=== PATIENT | male | born 1970 | race Caucasian/White ===

== ENCOUNTER 2023-08-31 17:16 | Emergency (ER) | payer OTHER, SELFPAY ==
[2023-08-31] VITALS (7 sets, daily range): BP systolic 105–145; BP diastolic 76–94
--- NOTE | 2023-08-31 17:50 | ED.GENMED ---
History of Present Illness
General
Chief Complaint: Chest Pain
Time Seen by Provider: 08/31/23 17:31
Travel History
Have you had any contact with someone who has COVID-19?: No
Do you have any symptoms of coronavirus? Fever > 100 degrees, chills, cough, shortness of breath, sore throat, loss of taste or smell, muscle aches, or headache?: No
History of Present Illness
History of Present Illness:
52-year-old male presents to the emergency department for acute onset of chest pain and diaphoresis developing earlier today at approximately 2 PM. Patient has had multiple similar episodes ongoing for several months that have not led to a
underlying diagnosis. He did have an echocardiogram in early June that was unremarkable and is scheduled for a exercise stress test at the end of this month. Pain that he describes today feels quite similar to the episodes he has had in the
past. Denies associated fever, chills. Does report sweating and shortness of breath associated with this. No back pain or leg swelling. Denies any illicit substance use
Past History
Past History
ED Past Medical History: Other (Back issues)
ED Past Surgical History: Orthopedic
Social History
Tobacco: Non-smoker
Alcohol: None
Drug: Marijuana
Personal:
Living: with family
Employment: Employed
Review of Systems
Review of Systems
Allergies reviewed?: Yes
All Other Systems: ROS reviewed and negative except as documented in HPI and ROS
Phy Exam
Physical Exam
Physical Exam:
GEN: Anxious appearing, nontoxic
Eyes: PERRLA, EOMs intact, no scleral icterus
HENT: NCAT, oral mucosa moist
Lungs: CTAB, no wheezes, rales, rhonchi, normal chest wall excursion
Cardiac: Tachycardic and irregular, no M/R/G, no peripheral edema. Radial pulses 2+ bilat
Abdomen: S, NT, ND, NABS, no masses or hepatosplenomegaly
Neuro: AO x 3
MSK: No gross deformity or ecchymosis. No edema. No digital clubbing
Skin: No rashes, petechiae. Normal color, no pallor or jaundice.
Psych: Calm, cooperative, proper hygiene
Scores
Heart Score for Chest Pain Patients
STEMI patient?: No
History: Slightly or Non-Suspicious
ECG: Normal
Age: </= 45 years
Risk Factors: No Risk Factors
Troponin: </= Normal Limit
Heart Score for Chest Pain Patients: 0
Heart Score Risk: 2.5% MACE over next 6 weeks
Course
Orders/Labs/Results
Orders:
Orders
08/31/23 17:17
EKG [Electrocardiogram (*1)] Stat
Reason for Study: Chest Pain
EKG- Treatment ONCE
08/31/23 17:49
Diltiazem HCl [Cardizem] 15 mg IV NOW STA
08/31/23 18:00
Diltiazem 125 mg/125 ml Nss [Cardizem] 125 mg in 125 ml IV PER PROTOCOL
Initial dose in mg/hr, then titrate:: 5
Titrate to keep:: Heart rate 80-100 bpm
Titrate by mg/hr:: 5 mg/hr
Frequency of titrations (minutes):: 15
Maximum dose in mg/hr:: 15
08/31/23 18:07
Complete Blood Count/With Diff Urgent
Comprehensive Metabolic Panel Urgent
Magnesium Urgent
08/31/23 18:58
Diltiazem [Cardizem] 60 mg PO NOW STA
08/31/23 20:31
Apixaban [Eliquis] 5 mg PO NOW STA
Abnormal Lab Results
08/31/23
18:07
MCH 31.5 H pg
(27.0-31.0)
MPV 11.1 H fL
(7.4-10.4)
Absolute Lymphs (auto) 3.9 H 10^3/uL
(1.2-3.4)
Glucose 130 H mg/dl
(70-99)
08/31/23 18:07
08/31/23 18:07
Vital Signs
Initial and Last Documented VS:
Initial Vital Signs
Temp Pulse Resp Pulse Ox
97.6 F 91 26 100
08/31/23 17:22 08/31/23 17:22 08/31/23 17:22 08/31/23 17:22
Last Documented Vital Signs
Temp Pulse Resp BP Pulse Ox
97.6 F 76 16 116/85 99
08/31/23 17:22 08/31/23 20:45 08/31/23 20:45 08/31/23 20:00 08/31/23 20:45
MDM/Problems Addressed
MDM/Problems Addressed:
Patient did convert to normal sinus rhythm transiently without medications but rapidly restarted and atrial fibs shortly thereafter. He was initially given IV diltiazem and started on diltiazem drip, had good rate control throughout this process.
He was given oral diltiazem and shortly thereafter the infusion was discontinued and the patient remained asymptomatic with controlled rates. He is not a cardioversion candidate due to the paroxysmal nature of his symptoms. We will start him on
anticoagulants and long-acting Cardizem, outpatient cardiology follow-up advised
Comment
Comment:
EKG independently interpreted by me shows a rapid atrial fibrillation with a rate of 151, no ST changes concerning for ischemia
*Critical Care Note
Total Time (30-74mins, 75-104mins- exclusive of procedures): Not Applicable
ED Attending Note
-
Portions of this chart may have been created with voice recognition software.� Occasional wrong word or��sound alike� substitutions may have occurred due to the inherent limitations of voice recognition software.
Discharge Plan
Departure
Patient Disposition: Home (Routine Discharge)
Date of Disposition: 08/31/23
Time of Disposition: 20:31
Patient with high blood pressure during this ER visit?: No
Discharge Problem:
Atrial fibrillation, new onset
Instructions: Atrial Fibrillation (DC), Going Home on Blood Thinners
Prescriptions:
New
diltiazem HCl 180 mg capsule,extended release 24hr
180 mg PO DAILY Qty: 30 0RF
Eliquis 5 mg tablet
5 mg PO BID Qty: 60 0RF
No Action
gabapentin 600 mg tablet
1,800 mg PO HS
ibuprofen 200 mg Capsule
400 mg PO Q6H PRN (Reason: mild pain)
Referrals:
Jenny Alvarez, [Family Provider] -
Activity Restrictions/Additional Instructions:
Follow up with your catering service manager
Interventions
Interventions:
*Risk Screen - Suicide Last Done: 08/31/23 17:20
*General Assessment Last Done: 08/31/23 17:20
*Neglect/Abuse Screening Last Done: 08/31/23 17:20
ED- Fall Risk Assessment Last Done: 08/31/23 21:08
*ED COVID-19 Vaccine History Last Done: 08/31/23 17:20
*Nursing Disposition Last Done: 08/31/23 21:08
ED- Cardiac Assessment Last Done: 08/31/23 19:00
Discharge Date and Time
Discharge Date/Time: 08/31/23 21:09
Print Language: CHINESE
[2023-08-31] MEDS: CARDIZEM 125 IV (17:59)
[2023-08-31] MEDS: CARDIZEM 15 MG IV (18:00)
[2023-08-31 18:15] LABS: % Basophils 0.6 % (0-2); % Immature Granulocytes 0.2 % (0-0.5); % Lymphocytes 42.6 % (20.5-51.1); % Monocytes 6.5 % (1.7-9.3); % Neutrophils 49.1 % (42.2-75.2); Absolute Basophils 0.1 10^3/uL (0-0.2); Absolute Eosinophils 0.1 10^3/uL (0-0.7); Absolute Lymphocytes 3.9 10^3/uL (1.2-3.4); Absolute Monocytes 0.6 10^3/uL (0.1-0.6); Absolute Neutrophils 4.5 10^3/uL (1.4-6.5); Hematocrit 43.2 % (39.0-52.0); Hemoglobin 15.9 g/dL (13.0-18.0); Mean Corp Hgb Conc. 36.8 g/dL (33.0-37.0); Mean Corpuscular Hgb 31.5 pg (27.0-31.0); Mean Corpuscular Volume 85.7 fL (80.0-94.0); Mean Platelet Volume 11.1 fL (7.4-10.4); Nucleated Red Blood Cells % 0 % (-); Platelet Count 246 10^3/uL (130-400); Red Blood Cell Count 5.04 10^6/uL (4.70-6.10); Red Cell Dist. Width 12.1 % (11.5-14.5); White Blood Cell Count 9.1 10^3/uL (4.8-10.8)
[2023-08-31 18:28] LABS: ALT (SGPT) 27 U/L (0-50); AST (SGOT) 28 U/L (17-59); Albumin 4.7 g/dl (3.5-5.0); Alkaline Phosphatase 58 U/L (38-126); Blood Urea Nitrogen 19 mg/dl (9-20); Carbon Dioxide 25 mmol/L (22-30); Chloride 106 mmol/L (98-107); Glucose 130 mg/dl (70-99); Sodium 137 mmol/L (135-145); Total Bilirubin 0.9 mg/dl (0.2-1.3); Total Protein 7.2 g/dl (6.3-8.2); eGFR > 60.00
[2023-08-31] MEDS: CARDIZEM 60 MG PO (19:16)
[2023-08-31] MEDS: ELIQUIS 5 MG PO (20:39)
== END 2023-08-31 21:09 | disposition home or self-care (01) ==
LOC: EMR 17:16
PROVIDERS: Physician Assistant; EMERGENCY PHYSICIAN Emergency Medicine; FAMILY PHYSICIAN Family Medicine
DX: I48.91 Unspecified atrial fibrillation (principal)
CPT/HCPCS: 99283; 80053; 83735; 85025; 93005

== ENCOUNTER → 2023-09-20 09:43 | Outpatient (REF) | payer OTHER, SELFPAY | LOC: RCS 09:43 | PROVIDERS: ATTENDING PHYSICIAN Internal Medicine Cardiovascular Disease; FAMILY PHYSICIAN Family Medicine | DX: R07.9 Chest pain, unspecified (principal) | CPT/HCPCS: 93017 ==

== ENCOUNTER → 2023-09-25 08:46 | Outpatient (REF) | payer OTHER, SELFPAY | LOC: RCS 08:46 | PROVIDERS: ATTENDING PHYSICIAN Nurse Practitioner; FAMILY PHYSICIAN Family Medicine | DX: I48.0 Paroxysmal atrial fibrillation (principal) | CPT/HCPCS: 93306 ==

== ENCOUNTER 2023-11-04 05:49 | Day surgery (SDC) | payer OTHER, SELFPAY ==
[2023-10-15 08:59] VITALS: BMI 24.4
[2023-10-15 09:33] LABS: % Basophils 0.5 % (0-2); % Eosinophils 1.5 % (0-6); % Immature Granulocytes 0.2 % (0-0.5); % Lymphocytes 41.4 % (20.5-51.1); % Monocytes 5.8 % (1.7-9.3); % Neutrophils 50.6 % (42.2-75.2); Absolute Eosinophils 0.1 10^3/uL (0-0.7); Absolute Lymphocytes 2.3 10^3/uL (1.2-3.4); Absolute Monocytes 0.3 10^3/uL (0.1-0.6); Absolute Neutrophils 2.8 10^3/uL (1.4-6.5); Hematocrit 46.3 % (39.0-52.0); Mean Corp Hgb Conc. 34.6 g/dL (33.0-37.0); Mean Corpuscular Hgb 31.3 pg (27.0-31.0); Mean Corpuscular Volume 90.4 fL (80.0-94.0); Mean Platelet Volume 11.4 fL (7.4-10.4); Nucleated Red Blood Cells % 0 % (-); Platelet Count 209 10^3/uL (130-400); Red Blood Cell Count 5.12 10^6/uL (4.70-6.10); White Blood Cell Count 5.5 10^3/uL (4.8-10.8)
[2023-10-15 09:40] LABS: ALT (SGPT) 18 U/L (0-50); AST (SGOT) 20 U/L (17-59); Albumin 4.3 g/dl (3.5-5.0); Alkaline Phosphatase 46 U/L (38-126); Blood Urea Nitrogen 18 mg/dl (9-20); Calcium 9.7 mg/dl (8.4-10.2); Carbon Dioxide 26 mmol/L (22-30); Chloride 105 mmol/L (98-107); Estimated Creatinine Clearance > 125 ml/min; Glucose 131 mg/dl (70-99); Potassium 4.6 mmol/L (3.5-5.1); Sodium 139 mmol/L (135-145); Total Bilirubin 0.7 mg/dl (0.2-1.3); Total Protein 6.7 g/dl (6.3-8.2); eGFR > 60.00
[2023-11-04] VITALS (20 sets, daily range): BP systolic 105–117; BP diastolic 68–80; BMI 24.2
[2023-11-04 08:41] LABS: ACT-LR - POC 353 Seconds (116-155)
[2023-11-04 08:56] LABS: ACT-LR - POC 321 Seconds (116-155)
[2023-11-04 09:16] LABS: ACT-LR - POC 300 Seconds (116-155)
--- NOTE | 2023-11-04 09:54 | ITS.CL.ABL ---
Air Pollution Control Engineer - Ablation
Ablation
Procedure Report:
AFIB ablation:
Mr. Anaya is a very pleasant 52 yr old gentleman with medical history significant for symptomatic paroxysmal atrial fibrillation who is here in the EP lab for atrial fibrillation ablation
Date of Procedure:
11/04/2023
Indications:
Symptomatic atrial fibrillation
Pre-Operative Diagnosis:
Paroxysmal Atrial fibrillation
Post-Operative Diagnosis:
Paroxysmal Atrial fibrillation
Procedure Performed:
Atrial fibrillation ablation with wide area circumferential ablation (WACA) approach for pulmonary vein isolation
Performing Physician:
Duncan Galicia MD
Assistants:
EP staff
Anesthesia:
See anesthesia records
Detailed Description of the Procedure:
Written informed consent was obtained from the patient after a full explanation of the risks and benefits of the procedure including the risks of sedation and anesthesia.
The patient was brought to the electrophysiology laboratory in stable condition in fasting state. Continuous electrocardiographic and hemodynamic monitoring was initiated.
The initial rhythm was normal sinus rhythm.
The procedure site was meticulously prepared with surgical scrub and allowed to dry with no pooling. Sterile draping was applied to cover the procedure site. The image intensifier was draped with sterile bag and positioned over the patient. After
infusion of local anesthetic, vascular access was obtained under ultrasound guidance and sheaths were placed over guide wire as detailed below.
Sheath and Catheter Placement:
In the right femoral vein, an 8-Macanese sheath was placed for use during the ablation procedure. A second 9-Fr sheath was placed for use during intracardiac echo procedure.
The sheaths were upgraded as needed during the case. Intracardiac catheters were positioned using direct fluoroscopic guidance.� ICE catheter was placed in RA. The following catheters / sheaths were placed
Sheaths:
��������������� Agilis sheath in right femoral vein upgraded from 8Fr in right femoral vein
��������������� 9Fr in right femoral vein
Catheters:
������������� [employer] Thermacool STSF bidirectional (D/F) - at locations of HRA, RV, LA and LV.
������������� Pentaray catheter � at locations of RA and LA
������������� ICE catheter - at locations of RA, SVC, and RV.
Intracardiac ECHO:
An 8-Macanese AcuNav intracardiac ECHO (ICE) probe was advanced through the 9-Macanese sheath in the femoral vein into the right atrium under fluoroscopic and ICE ultrasound image guidance and a baseline ECHO study was performed. The left atrial size
was normal. There was trace tricuspid regurgitation. The aortic valve was grossly normal. There was normal left ventricular size and function. There was a trace pericardial effusion. The KELSEY has normal velocities noted on Doppler. All the four veins
were identified and good flow noted.
During the procedure, ICE was used for monitoring of complications, guidance of trans-septal puncture, monitor the catheter position and tracking ablation lesions. No change in the pericardial space noted throughout the procedure.
Trans-septal Puncture:
Heparin was initiated and infused to maintain appropriate ACT.
A J-tipped guidewire was advanced through the 8-Macanese sheath in the right femoral vein into the superior vena cava under fluoroscopic and ICE guidance. The 8-Macanese sheath was exchanged for an Agilis sheath which was advanced into the superior vena
cava. A BRK needle was advanced until the tip was slightly behind the tip of the dilator inside the Agilis. The apparatus was withdrawn until it was in contact with the fossa ovalis. The position was adjusted based on fluoroscopy and ultrasound
images from ICE. Under fluoroscopic, hemodynamic and ICE ultrasound guidance, left atrium was cannulated by advancing the needle. Once atrial septum was cannulated, the needle was pulled back and a BMW guide wire was advanced through the needle into
the left atrium. The guide wire was advanced into the left superior pulmonary vein. Both the sheath and the dilator was advanced into the left atrium. The dilator with the needle was withdrawn. Blood was aspirated from the Agilis sheath and arterial
blood confirmed. The sheath was flushed. Saline injection noted into the left atrium on ICE. The pressure waveform was checked ad LA pressure measured. The penta-ray catheter was advanced in the Agilis sheath into the left pulmonary vein.
The 3-D mapping was done and then the penta-ray was switched to ablation catheter and back to penta-ray as needed.
3D Electroanatomic Mapping:
Using the Pentaray catheter advanced through Agilis sheath into the left atrium, an electroanatomic map (EAM) of the left atrium was created using [employer] Carto mapping system. The map was used for localization of catheter position and
tacking of ablation lesions. The EAM of the left atrium showed 4 pulmonary veins with a left common segment with all four electrically connected to the body the LA. It showed no significant scar on the posterior wall of the LA. The LA was normal in
size.
Following the EAM, preparations were made for ablation.
Phrenic nerve stimulation attempt:
The right sided pulmonary veins were identified and the anterior antrum and the deep anterior locations of the PVs were check with high output stimulation that showed no phrenic nerve capture in any of the potential ablation areas. The whole of the
anterior wall was mapped and the deep veins were also tested and once no sign of phrenic capture noted, a design line was created through the areas of tested antral myocardium for ablation lesions.
Ablation:
Pulmonary vein Isolation:
Radiofrequency ablation was performed using an open irrigation, force-sensing 3.5mm radiofrequency ablation catheter ([email or web address] [email or web address]) by completing the circumferential lesions around the left and right pulmonary veins achieving pulmonary vein
isolation.
All the ablation lesions were guided by the LeBU[employer] SURPOINT module with the posterior lesions were limited to 45 bowles for SURPOINT lesion index goal of 400 and anterior wall lesions were limited to SURPOINT index goal of 450.
The esophagus was noted to be on the right side of the LA near the PV antra based on the locations of the esophageal temperature probe. Ablation was stopped for any temperature increase of 0.1 degree C. Max esophageal temperature was 37.5C�
(baseline 37)
EP study / Confirmation of the PVI and bidirectional block:
Following achievement of entrance block at the pulmonary veins, pacing from the pentaray catheter in each of the four veins at 10 milliamps for 2 milliseconds showed entrance and exit block. All PVI were rechecked at the end of the case and remained
isolated with dissociated and local capture with pacing. Entrance and exit block were demonstrated in all veins.
The LA was mapped with Carto EAM in sinus rhythm confirming the line of block at the ablation lesions lines.
Sinus Node Function: The sinus node functions are within acceptable normal range.
The AV rehan functions are deemed within normal range.
The mitral annulus was mapped and no sign of accessory pathway was noted.
Arrhythmia Induction:
No sustained arrhythmia was induced at the end of the study.�
Procedure End
ICE study was done again that showed no epicardial accumulation. No complications noted.
Following the completion of the EP study, catheters were removed. Protamine 40 mg was given at the end of the procedure and ACT was checked repeatedly. The sheaths were removed and hemostasis achieved with �figure of 8 suture� and manual compression
after acceptable ACT is achieved.
Left atrial Pressure:
Pre-Procedure: Mean LA pressure was 8mmHg
Post-Procedure: Mean LA pressure was 8mmHg
Post-Procedure: Mean RA pressure was 5mmHg
Estimated Blood loss:
<10 cc
Specimens Removed:
None.
Implants / Devices:
None
Urine output:
None
Packs / Drains/ Tubes:
None
Instrument / Sponge Count Correct:
Yes
Complications of the Procedure:
None
Condition of Patient at Time of Transfer:
Hemodynamically stable with no neurological or vascular compromise.
Summary:
Successful atrial fibrillation ablation with circumferential bidirectional line of block at pulmonary vein antra (Pulmonary vein isolation)
[2023-11-04] MEDS: ANESTHETIC LOZENGE 1 LOZENGE PO (10:05)
--- NOTE | 2023-11-04 10:11 | PTCARENOTE ---
Unable to verify vital signs obtained prior to 943 due to pt with another RN.
--- NOTE | 2023-11-04 12:18 | PTCARENOTE ---
1140 While walking out of bathroom post voiding, pt states he feels a lump on his right groin. Pt placed in stretcher. Pt's right groin oozing as well as a 3cm round hematoma noted above site. Manual pressure held x 15 minutes. Dressing removed.
Small 1cm hematoma noted under site. Manual pressure held an additional 5 minutes. Hemostasis obtained and hematoma compressed. Dry, sterile dressing applied. Pt's at pt bedside. Dr Galicia and Yesi Ingram QUALITY IMPROVEMENT COORDINATOR made aware. Yesi Ingram NP at bedside
to assess pt's right groin.
--- NOTE | 2023-11-04 12:50 | PTCARENOTE ---
Pt noted to have T wave inversions on the site monitor. Pt denies chest pain and or SOB. VSS. Yesi Ingram NP made aware and ordered an EKG. While obtaining EKG pt T waves flipped back to normal. EKG obtained and given to Yesi Ingram NP. No further
orders noted. Will continue to monitor.
--- NOTE | 2023-11-04 13:08 | W.PN.UPDATE ---
Update Note
Progress Note Update
52 yo WM s/p PVI (same day) He denies cp, sob, mary diet, voiding, amb w/o dizziness, R fem site closed with VASCADE, after oob small HT manual pressure for 10min, soft and no further HT, BR 30 min then oob and amb with stable groin. EKG SR no
ectopy. He will continue OAC Eliquis tonight at 5pm. He will continue diltiazem and take PPI for 2 weeks daily. Activity restrictions reviewed. He will f/u WHITE SPOOLER in 2 weeks. He is for d/c home after 1pm.
Mr. Anaya is a very pleasant 52 yr old gentleman with medical history significant for symptomatic paroxysmal atrial fibrillation who is here in the EP lab for atrial fibrillation ablation
Indications:
Symptomatic atrial fibrillation
Procedure Performed:
Atrial fibrillation ablation with wide area circumferential ablation (WACA) approach for pulmonary vein isolation
--- NOTE | 2023-11-04 13:10 | PTCARENOTE ---
Pt ambulated around recovery room x2 with RN and pt's . Pt denies dizziness and or lightheadedness. Right groin remains stable. No bleeding or hematoma noted before or after ambulating around recovery room. Pt and pt's state they both feel
comfortable going home. Yesi Ingram TELEVISION OPERATOR made aware and states pt ok for discharge.
== END 2023-11-04 13:15 | disposition home or self-care (01) ==
LOC: CATH 05:49
PROVIDERS: ATTENDING PHYSICIAN Internal Medicine Cardiovascular Disease; FAMILY PHYSICIAN Family Medicine; OTHER PHYSICIAN Internal Medicine Cardiovascular Disease
DX: I48.0 Paroxysmal atrial fibrillation (principal); R07.89 Other chest pain; R06.02 Shortness of breath; Z79.01 Long term (current) use of anticoagulants; Z87.891 Personal history of nicotine dependence
CPT/HCPCS: C1769; C1732; C1766; C1892; C1759; 36415; 76937; 80053; 85025; 85347; 86850; 86900; 86901; 93005; 93656; C1760

== ENCOUNTER → 2024-09-12 16:10 | Outpatient (REF) | payer OTHER, SELFPAY ==
[2024-09-12 16:48] LABS: % Basophils 0.4 % (0-2); % Eosinophils 2.4 % (0-6); % Immature Granulocytes 0.1 % (0-0.5); % Lymphocytes 44.4 % (20.5-51.1); % Monocytes 6.3 % (1.7-9.3); % Neutrophils 46.4 % (42.2-75.2); Absolute Eosinophils 0.2 10^3/uL (0-0.7); Absolute Lymphocytes 3.1 10^3/uL (1.2-3.4); Absolute Monocytes 0.4 10^3/uL (0.1-0.6); Absolute Neutrophils 3.2 10^3/uL (1.4-6.5); Hematocrit 41.4 % (39.0-52.0); Hemoglobin 14.2 g/dL (13.0-18.0); Mean Corp Hgb Conc. 34.3 g/dL (33.0-37.0); Mean Corpuscular Hgb 31.4 pg (27.0-31.0); Mean Corpuscular Volume 91.6 fL (80.0-94.0); Mean Platelet Volume 11.1 fL (7.4-10.4); Nucleated Red Blood Cells % 0 % (-); Platelet Count 184 10^3/uL (130-400); Red Blood Cell Count 4.52 10^6/uL (4.70-6.10); Red Cell Dist. Width 12.2 % (11.5-14.5)
[2024-09-12 17:08] LABS: Albumin 4.2 g/dl (3.5-5.0); Blood Urea Nitrogen 20 mg/dl (9-20); Calcium 8.9 mg/dl (8.4-10.2); Carbon Dioxide 30 mmol/L (22-30); Chloride 105 mmol/L (98-107); Glucose 121 mg/dl (70-99); Phosphorus 3.3 mg/dl (2.5-4.5); Potassium 4.2 mmol/L (3.5-5.1); Sodium 142 mmol/L (135-145); eGFR > 60.00
== END ==
LOC: REG 16:10
PROVIDERS: ATTENDING PHYSICIAN Internal Medicine Cardiovascular Disease; FAMILY PHYSICIAN Family Medicine
DX: I48.0 Paroxysmal atrial fibrillation (principal); R06.02 Shortness of breath; R03.1 Nonspecific low blood-pressure reading; R53.83 Other fatigue
CPT/HCPCS: 36415; 80069; 85025